=== PATIENT | female | born 1995 | race Caucasian/White ===

== ENCOUNTER 2018-02-22 14:25 | Emergency (ER) | payer OTHER ==
[~2018-02-22] VITALS: Ht 152.4 cm; Wt 73.5 kg
[2018-02-22] MEDS ORDERED: TOPROL XL25 M1 (14:43)
[2018-02-22] MEDS ORDERED: ZANTAC300 MG (14:44)
== END 2018-02-22 20:47 | disposition home or self-care (01) ==
LOC: ER 14:25
DX: S30.0XXA Contusion of lower back and pelvis, initial encounter (principal); V49.9XXA Car occupant (driver) (passenger) injured in unspecified traffic accident, initial encounter; Y93.89 Activity, other specified; Y92.488 Other paved roadways as the place of occurrence of the external cause; Y99.8 Other external cause status

== ENCOUNTER 2022-01-10 11:53 | Outpatient (CLI) | payer OTHER ==
[~2022-01-10 11:53] MED LIST: TOPROL XL25 M1; ZANTAC300 MG
== END 2022-01-10 12:00 | disposition home or self-care (01) ==
LOC: RAD 11:53
PROVIDERS: ATTEND Orthopaedic Surgery
DX: S62.325A Displaced fracture of shaft of fourth metacarpal bone, left hand, initial encounter for closed fracture (principal)

== ENCOUNTER 2022-01-17 06:10 | Day surgery (SDC) | payer OTHER | END 2022-01-17 11:25 | disposition home or self-care (01) | LOC: CIR.AMB 06:10 | PROVIDERS: ATTEND Orthopaedic Surgery | DX: S62.395A Other fracture of fourth metacarpal bone, left hand, initial encounter for closed fracture (principal); E16.2 Hypoglycemia, unspecified; J45.909 Unspecified asthma, uncomplicated; E66.9 Obesity, unspecified ==

== ENCOUNTER 2022-02-12 12:46 | Outpatient (CLI) | payer OTHER | END 2022-02-12 12:59 | disposition home or self-care (01) | LOC: RAD 12:46 | PROVIDERS: ATTEND Orthopaedic Surgery | DX: M79.642 Pain in left hand (principal) ==

== ENCOUNTER 2022-11-17 17:33 | Emergency (ER) | payer OTHER ==
[~2022-11-17] VITALS: Ht 152.4 cm; Wt 77.1 kg
[2022-11-17] MEDS ORDERED: NABUMETONE750 MG PO (21:22)
[2022-11-17] MEDS ORDERED: DEXAMETHASONE4 MG PO (21:22)
== END 2022-11-17 22:16 | disposition home or self-care (01) ==
LOC: ER 17:33
DX: M25.572 Pain in left ankle and joints of left foot (principal)

== ENCOUNTER 2023-04-14 10:05 | Outpatient (CLI) | payer OTHER ==
[~2023-04-14 10:05] MED LIST changes: +DEXAMETHASONE4 MG PO; +NABUMETONE750 MG PO
== END 2023-04-14 11:35 | disposition home or self-care (01) ==
LOC: PRENATAL 10:05
PROVIDERS: ATTEND Obstetrics & Gynecology Maternal & Fetal Medicine
DX: O36.80X0 Pregnancy with inconclusive fetal viability, not applicable or unspecified (principal); Z3A.12 12 weeks gestation of pregnancy

== ENCOUNTER 2023-06-12 12:53 | Outpatient (CLI) | payer OTHER | END 2023-06-12 14:48 | disposition home or self-care (01) | LOC: PRENATAL 12:53 | PROVIDERS: ATTEND Obstetrics & Gynecology Maternal & Fetal Medicine | DX: O35.9XX0 Maternal care for (suspected) fetal abnormality and damage, unspecified, not applicable or unspecified (principal); O35.3XX0 Maternal care for (suspected) damage to fetus from viral disease in mother, not applicable or unspecified; Z3A.20 20 weeks gestation of pregnancy ==

== ENCOUNTER 2023-09-03 13:16 | Outpatient (CLI) | payer OTHER | END 2023-09-03 13:17 | disposition home or self-care (01) | LOC: PRENATAL 13:16 | PROVIDERS: ATTEND Obstetrics & Gynecology Maternal & Fetal Medicine | DX: O26.849 Uterine size-date discrepancy, unspecified trimester (principal); O36.8199 Decreased fetal movements, unspecified trimester, other fetus; Z3A.32 32 weeks gestation of pregnancy ==